=== PATIENT | female | born 1985 | race Caucasian/White ===

== ENCOUNTER 2023-12-22 13:23 | Outpatient (CLI) | payer BC, SELFPAY ==
--- NOTE | 2023-12-22 13:40 | MM_ITS ---
Patient: HEMAL PETERSON Facility:?[facility] Patient ID:?[id number] Site Patient ID:?[id number]. Site :?[id number] Study:?XRay-Breast Bilateral 3D w/CAD-12/22/2023 1:57:00 PM Ordering Physician:Alondra Final Report: BILATERAL SCREENING MAMMOGRAM WITH COMPUTER-AIDED DETECTION AND TOMOSYNTHESIS TECHNIQUE: CC and MLO views were obtained. These mammographic images have been obtained using full-field digital technique. These mammographic images were interpreted with the benefit of computer-aided detection. Breast tomosynthesis was used in this interpretation. COMPARISON FILM: 08/19/2021. FINDINGS: The breasts are extremely dense, which lowers the sensitivity of mammography. IMPRESSION: There is no radiographic evidence for malignancy. ASSESSMENT: BI-RADS Category 2: Benign RECOMMENDATION: Annual mammograms beginning at age 40. A lay language report of this examination will be provided to the patient. BILLIE WADE M.D. Diagnostic Radiologist [email or web address] SYMONE/rcnancie D& Transcribed: 3:[address]/Dictated by: Billie Wade MD @ 12/26/2023 12:24:00 PM Signed by:?Billie Wade MD @12/26/2023 9:34:17 PM (Electronic Signature)
== END 2023-12-22 13:24 | disposition home or self-care (01) ==
LOC: MAMMO 13:23
PROVIDERS: PCP Family Medicine; Visit Provider Family Medicine
DX: Z12.31 Encounter for screening mammogram for malignant neoplasm of breast (principal); R92.2 Inconclusive mammogram
CPT/HCPCS: 77063; 77067

== ENCOUNTER 2024-04-23 08:20 | Outpatient (CLI) | payer BC, SELFPAY | END 2024-04-23 08:21 | disposition home or self-care (01) | LOC: NFLDREF 17:14 | PROVIDERS: PCP Family Medicine; Referring Provider Family Medicine; Visit Provider Family Medicine | DX: Z00.00 Encounter for general adult medical examination without abnormal findings (principal); F98.8 Other specified behavioral and emotional disorders with onset usually occurring in childhood and adolescence | CPT/HCPCS: 80048; 80061 ==